=== PATIENT | male | born 1980 | race Two or more races ===

== ENCOUNTER 2018-01-23 04:03 | Emergency (ER) | payer MEDICAID, OTHER, SELFPAY ==
[~2018-01-23] VITALS: Ht 175.3 cm; Wt 105.4 kg
[2018-01-23] MEDS ORDERED: SODIUM CHLORIDE FLUSH 10ML SYR IVF ONE (05:30)
[2018-01-23] MEDS ORDERED: KETOROLAC 30 MG/1 ML IVPush ONE (05:30)
[2018-01-23] MEDS ORDERED: SODIUM CHLORIDE 0.9% 1,000ML IVBOLUS ONE (05:30)
[2018-01-23] MEDS ORDERED: ONDANSETRON 2MG/ML, 2ML IVPush ONE (05:30)
[2018-01-23] MEDS ORDERED: CHLORDIAZEPOXIDE 25 MG CAPSULE PO ONE (05:30)
[2018-01-23] MEDS ORDERED: FAMOTIDINE 20 MG/2 ML IVP ONE (05:30)
[2018-01-23 05:31] LABS: BASOPHILS % (AUTO) 0 % (0-1); EOSINOPHILS # (AUTO) 0.04 x10^3/uL (0-0.4); EOSINOPHILS % (AUTO) 0 % (1-7); LYMPHOCYTES # (AUTO) 2.02 x10^3/uL (1-3.4); LYMPHOCYTES % (AUTO) 18 % (22-44); MD NO; MEAN CORPUSCULAR VOLUME 91.1 fL (81-97); MONOCYTES # (AUTO) 0.46 x10^3/uL (0.2-0.8); MONOCYTES % (AUTO) 4 % (2-9); NEUTROPHILS # (AUTO) 8.82 x10^3/uL (1.8-6.8); NEUTROPHILS % (AUTO) 78 % (42-75); PLATELET COUNT 261 x10^3/uL (130-400); RED BLOOD COUNT 4.97 x10^6/uL (4.38-5.82); RED CELL DISTRIBUTION WIDTH 13.1 % (9.4-14.8)
[2018-01-23] MEDS ORDERED: KETOROLAC 30 MG/1 ML ONE (05:32)
[2018-01-23] MEDS ORDERED: CHLORDIAZEPOXIDE 25 MG CAPSULE ONE (05:32)
[2018-01-23] MEDS ORDERED: ONDANSETRON 2MG/ML, 2ML ONE (05:32)
[2018-01-23] MEDS ORDERED: FAMOTIDINE 20 MG/2 ML ONE (05:33)
[2018-01-23 05:34] LABS: AMPHETAMINE SCREEN, URINE Negative (Negative); BARBITURATE SCREEN, URINE Negative (Negative); BENZODIAZEPINE SCREEN, URINE Negative (Negative); CANNABINOID SCREEN, URINE Negative (Negative); COCAINE SCREEN, URINE Negative (Negative); METHADONE SCREEN, URINE Negative (Negative); OPIATE SCREEN, URINE Positive (Negative)
[2018-01-23 05:43] LABS: ALANINE AMINOTRANSFERASE 38 U/L (12-78); ALBUMIN 4.1 g/dL (3.4-5.0); ANION GAP 6 mmol/L (5-15); CALCIUM 9.1 mg/dL (8.5-10.1); CHLORIDE 109 mmol/L (98-107); CREATININE 0.75 mg/dL (0.7-1.3); SALICYLATE LEVEL < 1.7 mg/dL (2.8-20.0)
[2018-01-23 05:44] LABS: ACETAMINOPHEN < 2 mcg/mL (10-30)
[2018-01-23 05:45] LABS: ALKALINE PHOSPHATASE 103 U/L (45-117); TOTAL PROTEIN 7.8 g/dL (6.4-8.2)
[2018-01-23 05:46] VITALS: BP 179/101
== END 2018-01-23 06:56 | disposition home or self-care (01) ==
LOC: ED 06:50
DX: G89.29 Other chronic pain (principal); M54.42 Lumbago with sciatica, left side; F41.9 Anxiety disorder, unspecified; F13.20 Sedative, hypnotic or anxiolytic dependence, uncomplicated; F11.10 Opioid abuse, uncomplicated; Z79.899 Other long term (current) drug therapy
CPT/HCPCS: 36415; 80053; 80307; 80329; 85025; 93005; 96374; 96375; 99285; J1885; J2405; J7030; S0028; G0480